=== PATIENT | female | born 1960 | race Caucasian/White ===

== ENCOUNTER 2017-10-28 10:51 | Emergency (ER) | payer SELFPAY ==
[2017-10-28 11:19] LABS: PLATELET COUNT, AUTOMATED 244 K/uL (150-450)
--- NOTE | 2017-10-28 11:44 | RADIOLOGY IMAGING REPORT ---
FACILITY: [facility] [place] PATIENT NAME: Dalton Dwoney : 10/29/1965 MR: [id number] V: [id number] EXAM DATE: ORDERING PHYSICIAN: PATRICIA JUNIOR TECHNOLOGIST: [place] [facility] [place]ney : 10/29/1965 Visit/Account:[id number] Date of Sevice: 10/28/2017 CHEST SINGLE AP Indication: Altered consciousness. Comparison: None available Findings: The heart is enlarged. There is suggestion of vascular congestion with mild nonspecific diffuse bronc hial wall thickening. There is no focal infiltrate or lobar consolidation. Low lung volumes with bibasilar atelectasis No pneumothorax or pleural effusion. IMPRESSION: 1. No acute cardiopulmonary process. 2. Cardiomegaly with findings of vascular congestion and nonspecific bronchial wall thickening. 3. Low lung volumes with bibasilar atelectasis. Report Dictated By: Kb Tyson MD at 10/28/2017 11:39 AM Report E-Signed By: Kb Tyson MD at 10/28/2017 11:40 AM WSN:[id number]
[2017-10-28] MEDS ORDERED: PIPERACILLIN/TAZO*3.375GM VIAL 3.375 GM in NS(*) 0.9% 100 ML ADDVANT BAG 100 ML IVPB ONE (11:55)
[2017-10-28] MEDS ORDERED: VANCOMYCIN 1 GM ADDVIAL 1 GM in NS(*) 0.9% 250 ML ADDVAN BAG 250 ML IVPB ONE (11:55)
[2017-10-28] MEDS ORDERED: NS(*) 0.9% 1000 ML BAG 1,000 ML IV ONE (12:00)
[2017-10-28 12:17] LABS: INR 1.07
[2017-10-28] MEDS ORDERED: LEVOPHED KIT (*) 1 IVSOL 1 KIT IV ONE (13:48)
--- NOTE | 2017-10-28 14:20 | RADIOLOGY IMAGING REPORT ---
FACILITY: [facility] PATIENT NAME: Dalton Downey : 10/29/1965 MR: [id number] V: [id number] EXAM DATE: ORDERING PHYSICIAN: EDDA EAGLE TECHNOLOGIST: Location: [facility] [place] Patient: Dalton Downey : 10/29/1965 Visit/Account:[id number] Date of Sevice: 10/28/2017 CHEST SINGLE AP Indication: Chest pain.. Comparison: Post intubation Findings: Endotracheal tube is still malpositioned, extending into the proximal aspect of the right mainstem br onchus. Recommend pulling back approximately 4 cm. Heart size within normal limits. No focal pulmonary consolidation. Ill-defined groundglass opacities on CT are not well seen with radi ograph. No pneumothorax or pleural effusion. IMPRESSION: 1. Endotracheal tube continues to be malpositioned, extending into the proximal aspect of the right m ainstem bronchus. Recommend pullback approximately 4 cm. Report Dictated By: Kb Tyson MD at 10/28/2017 2:13 PM Report E-Signed By: Kb Tyson MD at 10/28/2017 2:16 PM WSN:[id number]
--- NOTE | 2017-10-28 14:24 | RADIOLOGY IMAGING REPORT ---
FACILITY: [facility] [place] PATIENT NAME: Dalton Downey : 10/29/1965 MR: [id number] V: [id number] EXAM DATE: ORDERING PHYSICIAN: PATRICIA JUNIOR TECHNOLOGIST: Location: [facility] Patient: Dalton Downey : 10/29/1965 Visit/Account:[id number] Date of Sevice: 10/28/2017 CHEST/AB/PELV W/OUT CONTRAST HISTORY: sepsis/unresponsive/intubated/hypoxic TECHNIQUE: CT chest, abdomen and pelvis without intravenous contrast. One of the following dose optimization techniques was utilized in the performance of this exam: Autom ated exposure control; adjustment of the mA and/or kV according to the patient's size; or use of an i terative reconstruction technique. Specific details can be referenced in the facility's radiology C T exam operational policy. CONTRAST: None. Please note, lack of IV contrast limits evaluation of solid organs. COMPARISON: None. FINDINGS: CHEST: Heart/vessels: Mild prominence of the main pulmonary artery measuring up to 3.3 cm which is nonspeci fic however can be seen in the setting of pulmonary arterial hypertension. Otherwise negative. Mediastinum: Enteric tube extending through the esophagus, turning within the stomach. Otherwise neg ative. Lymph nodes: Nonspecific prominent right distal paratracheal lymph node measuring 12 mm in short axi s otherwise negative. Lungs/pleura: Limited evaluation secondary to motion artifact. There is multifocal groundglass opaci ties throughout the lungs. Mild left basilar atelectasis. Mild atelectasis anteriorly within the righ t middle lobe. Endotracheal tube is noted to extend into the right mainstem bronchus. Recommend retracting approxima tely 5-6 cm. Bones/soft tissues: Negative. ABDOMEN/PELVIS: Hepatobiliary: Hepatic steatosis. Liver is enlarged measuring 19 cm at the midclavicular line. Gallb ladder appears to be absent. Otherwise negative. Spleen: Negative. Adrenals: Negative. Pancreas: Negative. Kidneys/: Lopes catheter within a completely decompressed bladder lumen. The Lopes balloon appears to be somewhat low-lying however likely within the bladder lumen. Cannot completely exclude urethral location. GI: Mild sigmoid diverticulosis without evidence for diverticulitis. Otherwise negative. Appendix is unremarkable. Vessels/spaces/nodes: Negative. Bones/soft tissues: Chronic pelvic bone fractures. No acute osseous abnormality. Fusion hardware wit hin the bilateral sacroiliac joints. Mild degenerative changes within the lumbar spine. IMPRESSION: 1. Multifocal groundglass opacities throughout the lungs, likely infectious/inflammatory in etiology. 2. Malpositioning of the endotracheal tube extending down the right mainstem bronchus. 3. Question will low-lying Lopes catheter. The balloon may be within the proximal urethra. 4. Hepatomegaly with hepatic steatosis. 5. Additional incidental/chronic findings, as above. Results were discussed with PATRICIA JUNIOR at 10/28/2017 2:20 PM. Report Dictated By: Kb Tyson MD at 10/28/2017 2:05 PM Report E-Signed By: Kb Tyson MD at 10/28/2017 2:21 PM WSN:[id number]
--- NOTE | 2017-10-28 14:33 | RADIOLOGY IMAGING REPORT ---
FACILITY: [facility] PATIENT NAME: Dalton Downey : 10/29/1965 MR: [id number] V: [id number] EXAM DATE: ORDERING PHYSICIAN: EDDA EAGLE TECHNOLOGIST: Location: [facility] Patient: Dalton Downey : 10/29/1965 Visit/Account:[id number] Date of Sevice: 10/28/2017 CHEST SINGLE AP Indication: Post intubation. Comparison: None available Findings: Endotracheal tube extending into the right mainstem bronchus. Recommend pulling back approximately 3- 4 cm. Heart size within normal limits. Lungs are unchanged. No pneumothorax or pleural effusion. IMPRESSION: 1. Endotracheal tube extending into the right mainstem bronchus. 2. Otherwise stable chest Report Dictated By: Kb Tyson MD at 10/28/2017 2:28 PM Report E-Signed By: Kb Tyson MD at 10/28/2017 2:30 PM WSN:[id number]
--- NOTE | 2017-10-28 14:35 | RADIOLOGY IMAGING REPORT ---
[place] [facility] [place]: Dalton Downey : 10/29/1965 MR: [id number] V: [id number] EXAM DATE: ORDERING PHYSICIAN: EDDA EAGLE TECHNOLOGIST: Location: [facility] [place] Patient: Dalton Downey : 10/29/1965 Visit/Account:[id number] Date of Sevice: 10/28/2017 CHEST SINGLE AP Indication: Postintubation.. Comparison: None available Findings: Endotracheal tube has been pulled back and is now in satisfactory position, 4 cm from the annie. Heart size within normal limits. Lungs are unchanged. No pneumothorax or pleural effusion. IMPRESSION: 1. Endotracheal tube has been pulled back and is now in satisfactory position, approximately 4 cm fro m the annie. 2. Otherwise stable chest. Report Dictated By: Kb Tyson MD at 10/28/2017 2:30 PM Report E-Signed By: Kb Tyson MD at 10/28/2017 2:31 PM WSN:[id number]
--- NOTE | 2017-10-28 14:36 | RADIOLOGY IMAGING REPORT ---
FACILITY: [facility] PATIENT NAME: Dalton Downey : 10/29/1965 MR: [id number] V: [id number] EXAM DATE: ORDERING PHYSICIAN: PATRICIA JUNIOR TECHNOLOGIST: Location: [facility] Patient: Dalton Downey : 10/29/1965 Visit/Account:[id number] Date of Sevice: 10/28/2017 EXAMINATION: HEAD W/O CONTRAST CLINICAL INDICATION: sepsis/unresponsive/intubated/hypoxic COMPARISON: No priors TECHNIQUE: Contiguous axial CT images of the brain were obtained without IV contrast. Sagittal and co binh reformatted images were also performed. One of the following dose optimization techniques was utilized in the performance of this exam: Autom ated exposure control; adjustment of the mA and/or kV according to the patient's size; or use of an i terative reconstruction technique. Specific details can be referenced in the facility's radiology C T exam operational policy. RESULT: BRAIN: The ventricles are symmetric and normal in size. Nonspecific small focus of hypoattenuation o n long the periphery of the right frontal lobe (image 51 of series 2). Remaining brain parenchyma vandana ears normal. Remaining calero-white matter differentiation is preserved and the basilar cisterns are ma intained. The cerebellum and brainstem appear normal. There is no mass, acute infarct, hemorrhage or shift of midline. VISUALIZED PARANASAL SINUSES & MASTOIDS: Small layering fluid levels within the maxillary sinuses the re is also congestion within the nasal nasal passages with thickening of the ethmoid air cells. Mild chronic appearing peripheral opacification of the sphenoid sinuses. SKULL BASE & CRANIUM: Visualized osseous structures are intact. Partial visualization of endotracheal tube. IMPRESSION: 1. No definitive acute abnormality. 2. Nonspecific small focus of hypoattenuation along the periphery of the right frontal lobe. This may represent artifact or focal inflammation. MRI should be considered for further evaluation. 3. Paranasal sinus disease which could be partially related to intubation. Results were discussed with Dr. Olsen at 10/28/2017 2:30 PM. Report Dictated By: Kb Tyson MD at 10/28/2017 2:21 PM Report E-Signed By: Kb Tyson MD at 10/28/2017 2:32 PM WSN:[id number]
--- NOTE | 2017-10-28 14:38 | EKG ---
FACILITY: [facility] - [place] PATIENT NAME: MOLINA SEAMANVIII : [id number] MR: [id number] V: [id number] EXAM DATE: ORDERING PHYSICIAN: PATRICIA JUNIOR TECHNOLOGIST: Test Reason : Blood Pressure : / mmHG Vent. Rate : 107 BPM Atrial Rate : 107 BPM P-R Int : 146 ms QRS Dur : 088 ms QT Int : 390 ms P-R-T Axes : 071 118 063 degrees QTc Int : 520 ms Sinus tachycardia Left posterior fascicular block Septal infarct , age undetermined Abnormal ECG No previous ECGs available Confirmed by NANCY ISLAS ([id number]) on 10/29/2017 5:55:44 AM Referred By: VERNON Confirmed By:NANCY ISLAS
--- NOTE | 2017-10-28 14:38 | EKG ---
FACILITY: [facility] - [place] PATIENT NAME: MOLINA ALEXANDERXVIII : [id number] MR: [id number] V: [id number] EXAM DATE: ORDERING PHYSICIAN: PATRICIA JUNIOR TECHNOLOGIST: TISH Huizar Reason : Blood Pressure : / mmHG Vent. Rate : 113 BPM Atrial Rate : 113 BPM P-R Int : 146 ms QRS Dur : 094 ms QT Int : 358 ms P-R-T Axes : 063 107 091 degrees QTc Int : 491 ms Sinus tachycardia Right ventricular hypertrophy with repolarization abnormality Marked ST abnormality, possible anterior subendocardial injury Abnormal ECG Confirmed by NANCY ISLAS ([id number]) on 10/29/2017 5:57:38 AM Referred By: VERNON Confirmed By:NANCY ISLAS
--- NOTE | 2017-10-28 14:39 | EKG ---
FACILITY: [facility] [place] PATIENT NAME: MOLINA ALEXANDERXVIII : [id number] MR: [id number] V: [id number] EXAM DATE: ORDERING PHYSICIAN: PATRICIA JUNIOR TECHNOLOGIST: TISH Huizar Reason : Blood Pressure : / mmHG Vent. Rate : 113 BPM Atrial Rate : 113 BPM P-R Int : 142 ms QRS Dur : 138 ms QT Int : 430 ms P-R-T Axes : 061 145 077 degrees QTc Int : 589 ms Age and gender specific ECG analysis Sinus tachycardia Right bundle branch block Left posterior fascicular block Bifascicular block Septal infarct , age undetermined Inferior injury pattern ACUTE CA Abnormal ECG No previous ECGs available Confirmed by NANCY ISLAS ([id number]) on 10/29/2017 5:58:55 AM Referred By: VERNON Confirmed By:NANCY ISLAS
[2017-10-28 15:00] VITALS: BP 118/80
[2017-10-28] MEDS ORDERED: GABA-549 PO (15:55)
[2017-10-28] MEDS ORDERED: LISI5TAB25 PO (15:55)
[2017-10-28] MEDS ORDERED: ASPI-692 PO (15:55)
[2017-10-28] MEDS ORDERED: LOVA20TA99 PO (15:55)
[2017-10-28] MEDS ORDERED: CYCL10TA29 PO (15:55)
[2017-10-28] MEDS ORDERED: DOXY50SY2 PO (15:55)
[2017-10-28] MEDS ORDERED: CETI10CA8 PO (15:55)
[2017-10-28] MEDS ORDERED: RANI-366 PO (15:55)
[2017-10-28] MEDS ORDERED: METF-411 PO (15:55)
[2017-10-28] MEDS ORDERED: ASPI-1471 PO (15:55)
[2017-10-28] MEDS ORDERED: PROPOFOL(*)1000 MG/100 ML VIAL 100 ML IV PRN (16:30)
--- NOTE | 2017-10-28 18:08 | ER Report ---
History and Physical Time Seen By MD: 10:55 Hx. of Stated Complaint: pt unresponsive, breathing in 70s ra HPI/ROS This is a 52-year-old female currently traveling with her son from [place] to [place]. She has a past medical history significant for multiple MIs, diabetes, COPD, and obesity. Herself said that she has not been feeling well for approximately a week and he states that she often clutches her chest and complains of chest pain and shortness of breath. 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 At approximately 0 5:30 this morning the son states that he was unable to arouse her. He tried for the next hour to wake her up, but was unsuccessful so called 911. She was brought in by ambulance hypoxic, unresponsive, moving all extremities, and not following commands. Paramedics said her oxygen sat upon their arrival was 70%. Herself states that she continues to smoke cigarettes daily. Also states that she has been intubated previously and even coded at one point. Remainder of the 14 system rev: No Allergies: Uncoded Allergies: ALLERGY MED (Allergy, Severe, 10/28/17) Home Meds Reported Medications Doxycycline Calcium (VIBRAMYCIN) 50 Mg/5 Ml Syrup, 100 MG PO BID 10/28/17 Ranitidine Hcl (ZANTAC) 150 Mg Tablet, 150 MG PO BID, TAB 10/28/17 Lisinopril (LISINOPRIL) 5 Mg Tablet, 5 MG PO QDAY, TAB 10/28/17 Lovastatin (LOVASTATIN) 20 Mg Tablet, 20 MG PO QDAY 10/28/17 Cetirizine Hcl (ZYRTEC) 10 Mg Capsule, 10 MG PO QDAY, CAPSULE 10/28/17 Metformin Hcl (METFORMIN HCL) 500 Mg Tablet, 1 TAB PO BID, TAB 10/28/17 Aspirin (ASPIR 81) 81 Mg Tablet.dr, 81 MG PO QDAY, TAB 10/28/17 Cyclobenzaprine Hcl (CYCLOBENZAPRINE HCL) 10 Mg Tablet, 10 MG PO TID, #9 TAB 10/28/17 Aspirin/Acetaminophen/Caffeine (EXCEDRIN MIGRAINE CAPLET) 1 Each Tablet, 1 EACH PO 10/28/17 Gabapentin (GABAPENTIN) 300 Mg Capsule, 600 MG PO TID, CAPSULE 7/7/18 Unable To Obtain Past Medical: Unable to Obtain/Update Reviewed Nurses Notes: Yes Hx Smoking: Yes Smoking Status: Current: Every Day Smoker Exposure to Second Hand Smoke?: Yes Hx Substance Use Disorder: No Hx Alcohol Use: No Family History of: HTN, Diabetes, Cardiac Constitutional Vital Sign - Last 24 Hours 10/28/17 10/28/17 10/28/17 10/28/17 10:51 10:52 10:56 11:01 Temp 97.9 Pulse 105 114 113 114 Resp 46 14 36 71 B/P (MAP) 72/29 (43) 75/52 Pulse Ox 96 90 95 94 O2 Delivery Non-Rebreather 10/28/17 10/28/17 10/28/17 10/28/17 11:02 11:06 11:10 11:11 Pulse 114 114 Resp 19 19 B/P (MAP) 79/57 (64) 88/45 (59) Pulse Ox 94 93 10/28/17 10/28/17 10/28/17 10/28/17 11:16 11:21 11:22 11:26 Pulse 118 115 113 Resp 25 19 16 B/P (MAP) 123/67 (85) Pulse Ox 91 91 91 10/28/17 10/28/17 10/28/17 10/28/17 11:30 11:31 11:36 11:40 Pulse 115 106 Resp 19 9 B/P (MAP) 123/115 (118) 148/97 (114) Pulse Ox 81 80 10/28/17 10/28/17 10/28/17 10/28/17 11:41 11:46 11:50 11:51 Pulse 113 116 113 Resp 8 52 29 B/P (MAP) 113/72 (86) Pulse Ox 84 91 96 10/28/17 10/28/17 10/28/17 10/28/17 11:56 12:00 12:01 12:06 Pulse 117 121 124 Resp 27 22 17 B/P (MAP) 188/117 (140) Pulse Ox 94 87 95 10/28/17 10/28/17 10/28/17 10/28/17 12:10 12:11 12:16 12:20 Pulse 118 116 Resp 25 31 B/P (MAP) 165/113 (130) 147/137 (140) Pulse Ox 97 98 10/28/17 10/28/17 10/28/17 10/28/17 12:21 12:21 12:21 12:21 Pulse 114 115 Resp 21 16 Pulse Ox 98 98 O2 Delivery Mechanical Ventilator FiO2 90.0 90.0 10/28/17 10/28/17 10/28/17 10/28/17 12:26 12:27 12:30 12:31 Pulse 111 111 Resp 16 7 B/P (MAP) 113/95 (101) 108/69 (82) Pulse Ox 97 98 10/28/17 10/28/17 10/28/17 10/28/17 12:36 12:40 12:41 12:46 Pulse 113 113 111 Resp 19 22 12 B/P (MAP) ???/??? (1665) 129/76 (93) Pulse Ox 100 98 99 10/28/17 10/28/17 10/28/17 10/28/17 12:50 12:55 13:00 13:05 Pulse 107 112 110 Resp 23 20 20 B/P (MAP) 129/93 (105) 107/75 (86) Pulse Ox 99 97 94 10/28/17 10/28/17 10/28/17 10/28/17 13:10 13:15 13:16 13:20 Pulse 108 108 110 Resp 20 19 23 B/P (MAP) 141/126 (131) 136/94 (108) 101/37 (58) Pulse Ox 90 87 89 10/28/17 10/28/17/11/0810/28/17 13:25 13:30 13:32 13:35 Pulse 106 107 104 Resp 13 22 B/P (MAP) 84/61 (69) 55/46 (49) Pulse Ox 94 87 10/28/17 10/28/17/11/0810/28/17 13:37 13:40 13:41 13:44 Pulse 108 Resp 16 B/P (MAP) 89/29 (49) 58/28 (38) 65/40 (48) Pulse Ox 86 10/28/17 10/28/17/11/0810/28/17 13:45 13:50 13:55 13:59 Pulse 107 109 107 Resp 29 15 B/P (MAP) 70/56 (61) 79/41 (54) 105/82 (90) Pulse Ox 85 79 7/7/18 7/7/18 7/7/18 7/7/18 14:00 14:05 14:10 14:15 Pulse 111 107 108 110 Resp 7 69 70 14 B/P (MAP) 99/80 (86) 92/30 (50) Pulse Ox 91 89 88 95 10/28/17 10/28/17 10/28/17 10/28/17 14:18 14:20 14:21 14:25 Pulse 108 113 Resp 10 18 B/P (MAP) 91/45 (60) 100/53 (69) 117/71 (86) Pulse Ox 98 98 FiO2 100.0 10/28/17 10/28/17 10/28/17 10/28/17 14:30 14:35 14:40 14:45 Pulse 114 111 115 114 Resp 36 24 15 19 B/P (MAP) 110/73 (85) 116/84 (95) 84/75 (78) 107/74 (85) Pulse Ox 98 99 100 93 10/28/17 10/28/17 10/28/17 14:50 14:55 15:00 Pulse 114 116 114 Resp 21 21 20 B/P (MAP) 100/78 (85) 111/79 (90) 118/80 (93) Pulse Ox 90 88 93 Physical Exam General Appearance: The patient is unresponsive with a GCS of 7 Eyes: Pupils equal and round no pallor or injection. ENT, Mouth: Mucous membranes are moist. Respiratory: Coarse breath sounds throughout both lung [place]. Cardiovascular: Tachycardic no murmurs rubs or gallops Gastrointestinal: Abdomen is soft and obese, no masses, bowel sounds normal. Neurological: She is moving all extremities equally, GCS 7 Skin: Warm and dry, no rashes. Extremities are nontender, nonswollen and have full range of motion. DIFFERENTIAL DIAGNOSIS: After history and physical exam differential diagnosis was considered for altered mental status including but not limited to hypoglycemia, infectious process, electrolyte abnormality, head injury and intoxicants. Medical Decision Making Data Points Result Diagram: 10/28/17 1103 10/28/17 1103 Laboratory Hematology Test 10/28/17 10:57 10/28/17 11:03 10/28/17 11:12 10/28/17 14:55 Whole Blood Glucose 424 mg/DL (75-110) Red Blood Count 4.87 M/uL (4.17-5.56) Mean Corpuscular Volume 94.6 fL (80.0-96.0) Mean Corpuscular Hemoglobin 30.9 pg (26.0-33.0) Mean Corpuscular Hemoglobin Concent 32.7 g/dL (32.0-36.0) Red Cell Distribution Width 14.2 % (11.5-14.5) Mean Platelet Volume 9.7 fL (7.2-11.1) Neutrophils (%) (Auto) 87.5 % (39.4-72.5) Lymphocytes (%) (Auto) 7.0 % (17.6-49.6) Monocytes (%) (Auto) 5.1 % (4.1-12.4) Eosinophils (%) (Auto) 0.0 % (0.4-6.7) Basophils (%) (Auto) 0.4 % (0.3-1.4) Nucleated RBC Relative Count (auto) 0.0 /100WBC Neutrophils # (Auto) 16.9 K/uL (2.0-7.4) Lymphocytes # (Auto) 1.4 K/uL (1.3-3.6) Monocytes # (Auto) 1.0 K/uL (0.3-1.0) Eosinophils # (Auto) 0.0 K/uL (0.0-0.5) Basophils # (Auto) 0.1 K/uL (0.0-0.1) Nucleated RBC Absolute Count (auto) 0.01 K/uL D-Dimer Quantitative (PE/DVT) 0.64 ug/ml (0-0.50) Sodium Level 139 mmol/L (137-145) Potassium Level 4.1 mmol/L (3.5-5.0) Chloride Level 91 mmol/L (98-107) Carbon Dioxide Level 35 mmol/L (22-31) Blood Urea Nitrogen 27 mg/dl (7-18) Creatinine 2.70 mg/dl (0.52-1.04) Glomerular Filtration Rate Calc 18.7 Random Glucose 399 mg/dl (75-110) Lactate 5.1 mmol/L (0.7-2.1) Calcium Level 8.1 mg/dl (8.4-10.2) Total Bilirubin 0.5 mg/dl (0.2-1.3) Aspartate Amino Transf (AST/SGOT) 74 U/L (0-35) Alanine Aminotransferase (ALT/SGPT) 42 U/L (0-56) Alkaline Phosphatase 87 U/L (0-126) Troponin I 0.346 ng/ml Total Protein 6.6 g/dl (6.3-8.2) Albumin 3.7 g/dl (3.5-5.0) Prothrombin Time 14.0 seconds (12.0-14.4) Prothromb Time International Ratio 1.07 Activated Partial Thromboplast Time 26 seconds (23-35) Salicylates Level < 10 mg/L Salicylate Last Dose Date u Acetaminophen Level < 10 ug/ml Serum Alcohol < 10 mg/dl Blood Gas Puncture Site Right radial Blood Gas Patient Temperature 38.2 DEGREES Arterial Blood pH 7.27 (7.35-7.45) Arterial Blood Partial Pressure CO2 74 mmHg (32-37) Arterial Blood Partial Pressure O2 77 mmHg (60-80) Arterial Blood HCO3 34 mmol/L (20-26) Arterial Blood Oxygen Saturation 91 % (92-100) Arterial Blood Base Excess 7.0 mmol/L Jonny Test Nt avail Oxygen Liters/Minute 70% vent Urine Opiates Screen Negative Urine Barbiturates Screen Negative Ur Tricyclic Antidepressants Screen Negative Urine Phencyclidine Screen Negative Urine Amphetamines Screen Negative Urine Benzodiazepines Screen Negative Urine Cocaine Screen Negative Urine Cannabinoids Screen Negative Chemistry Test 10/28/17 10:57 10/28/17 11:03 10/28/17 11:12 10/28/17 14:55 Whole Blood Glucose 424 mg/DL (75-110) White Blood Count 19.3 k/uL (4.5-11.0) Red Blood Count 4.87 M/uL (4.17-5.56) Hemoglobin 15.1 g/dL (12.0-16.0) Hematocrit 46.1 % (34.0-47.0) Mean Corpuscular Volume 94.6 fL (80.0-96.0) Mean Corpuscular Hemoglobin 30.9 pg (26.0-33.0) Mean Corpuscular Hemoglobin Concent 32.7 g/dL (32.0-36.0) Red Cell Distribution Width 14.2 % (11.5-14.5) Platelet Count 244 K/uL (150-450) Mean Platelet Volume 9.7 fL (7.2-11.1) Neutrophils (%) (Auto) 87.5 % (39.4-72.5) Lymphocytes (%) (Auto) 7.0 % (17.6-49.6) Monocytes (%) (Auto) 5.1 % (4.1-12.4) Eosinophils (%) (Auto) 0.0 % (0.4-6.7) Basophils (%) (Auto) 0.4 % (0.3-1.4) Nucleated RBC Relative Count (auto) 0.0 /100WBC Neutrophils # (Auto) 16.9 K/uL (2.0-7.4) Lymphocytes # (Auto) 1.4 K/uL (1.3-3.6) Monocytes # (Auto) 1.0 K/uL (0.3-1.0) Eosinophils # (Auto) 0.0 K/uL (0.0-0.5) Basophils # (Auto) 0.1 K/uL (0.0-0.1) Nucleated RBC Absolute Count (auto) 0.01 K/uL D-Dimer Quantitative (PE/DVT) 0.64 ug/ml (0-0.50) Glomerular Filtration Rate Calc 18.7 Lactate 5.1 mmol/L (0.7-2.1) Calcium Level 8.1 mg/dl (8.4-10.2) Total Bilirubin 0.5 mg/dl (0.2-1.3) Aspartate Amino Transf (AST/SGOT) 74 U/L (0-35) Alanine Aminotransferase (ALT/SGPT) 42 U/L (0-56) Alkaline Phosphatase 87 U/L (0-126) Troponin I 0.346 ng/ml Total Protein 6.6 g/dl (6.3-8.2) Albumin 3.7 g/dl (3.5-5.0) Prothrombin Time 14.0 seconds (12.0-14.4) Prothromb Time International Ratio 1.07 Activated Partial Thromboplast Time 26 seconds (23-35) Salicylates Level < 10 mg/L Salicylate Last Dose Date u Acetaminophen Level < 10 ug/ml Serum Alcohol < 10 mg/dl Blood Gas Puncture Site Right radial Blood Gas Patient Temperature 38.2 DEGREES Arterial Blood pH 7.27 (7.35-7.45) Arterial Blood Partial Pressure CO2 74 mmHg (32-37) Arterial Blood Partial Pressure O2 77 mmHg (60-80) Arterial Blood HCO3 34 mmol/L (20-26) Arterial Blood Oxygen Saturation 91 % (92-100) Arterial Blood Base Excess 7.0 mmol/L Jonny Test Nt avail Oxygen Liters/Minute 70% vent Urine Opiates Screen Negative Urine Barbiturates Screen Negative Ur Tricyclic Antidepressants Screen Negative Urine Phencyclidine Screen Negative Urine Amphetamines Screen Negative Urine Benzodiazepines Screen Negative Urine Cocaine Screen Negative Urine Cannabinoids Screen Negative Coagulation Test 10/28/17 11:03 10/28/17 11:12 D-Dimer Quantitative (PE/DVT) 0.64 ug/ml Prothrombin Time 14.0 seconds Prothromb Time International Ratio 1.07 Activated Partial Thromboplast Time 26 seconds Toxicology Test 10/28/17 11:12 10/28/17 14:55 Salicylates Level < 10 mg/L Salicylate Last Dose Date u Acetaminophen Level < 10 ug/ml Serum Alcohol < 10 mg/dl Urine Opiates Screen Negative Urine Barbiturates Screen Negative Ur Tricyclic Antidepressants Screen Negative Urine Phencyclidine Screen Negative Urine Amphetamines Screen Negative Urine Benzodiazepines Screen Negative Urine Cocaine Screen Negative Urine Cannabinoids Screen Negative EKG/Imaging EKG Interpretation 12 lead EKG: Rhythm: Sinus tachycardia [place]: normal QRS: Left bundle-branch block ST segments: Nonspecific T wave flattening Monitor Interpretation: Sinus Tachycardia Imaging X-ray: cxr was obtained. I viewed the images myself on the PACS system. My interpretation of the images is: Enlarged cardiac silhouette with hypoinflated lungs. The radiologist interpretation had no clinically significant variation from this interpretation. Results: CT scan of the head/chest/abdomen/pelvis was obtained. The results of the study are multiple groundglass opacities consistent with multilobar pneumonia, enlarged heart, ET tube in right mainstem bronchus. The study was read by the radiologist. I viewed the images myself on the PACS system. ED Course/Re-evaluation ED Course 10/28/2017 6:02:07 pm This is a 17-year-old female who was brought in by ambulance early this morning and respiratory distress and unresponsive with a GCS of approximately 7. She was initially found to be hypercarbic with a CO2 in the high 70s. Presumably she isn't hypercarbic respiratory failure so she was intubated both for ventilation and because she was not protecting her airway. Her workup also noted to be septic so she was started on aggressive fluid resuscitation as well as antibiotics. A CT scan of the head chest abdomen and pelvis was performed to evaluate for a source of sepsis, and she was found to have multiple lobar pneumonia. She had been given think and Zosyn for broad-spectrum antibiotics for sepsis. She also had an elevated troponin which is likely from demand ischemia given her extensive cardiac history. During the resuscitation. She became increasingly hypotensive and was started on levo fed. A central line was placed by me. After hours of resuscitation she did stabilize, and after 4 L of fluids put out 250 mL of urine. The extensive nature of her illness and likely need for a electronic device monitor, she was transferred to the intensive care unit at the [facility]. Procedure Procedure: Rapid sequence intubation. Indication for the procedure was airway protection, hypercarbic respiratory failure. The patient was preoxygenated with 100% oxygen by face mask. The patient was given the following IV medications: Etomidate/succinylcholine, . The patient was orally endotracheally intubated under direct visualization with a 7.5 ETT. In line stabilization was performed during the procedure. Tracheal intubation was confirmed with misting on the tube; breath sounds were auscultated equally bilaterally; appropriate color change with [place] CO2 detector. Chest X-ray shows ETT in good position. The procedure was performed by myself. Procedure: Central line placement. After verbal informed consent from the patient's son; with the risks explained to be bleeding, infection, and collapsed lung; maximal sterile barrier technique was uses including cap, gown, sterile gloves, large sheet, hand washing and chlorhexidine prep. The area anesthetized with 1% lidocaine. The right femoral vein was punctured with a 19 gauge finder needle, then a wire introducer was placed, a 7 [place] triple lumen was placed using Seldinger technique. There were no complications. Blood return low pressure, dark blood. Patient tolerated procedure well. The procedure was performed by myself. Decision to Disposition Date: Oct 28, 2017 Decision to Disposition Time: 16:00 Critical Care Time I spent a total of 180 minutes of critical care time in obtaining history, performing a physical exam, bedside monitoring of interventions, collecting and interpreting tests and discussion with consultants but not including time spent performing procedures. Depart Departure Latest Vital Signs Vital Signs Date Time Temp Pulse Resp B/P (MAP) Pulse Ox O2 Delivery O2 Flow Rate FiO2 10/28/17 15:00 114 20 118/80 (93) 93 10/28/17 14:21 100.0 10/28/17 12:21 Mechanical Ventilator 10/28/17 10:52 97.9 Core Temperature (Celsius): ??? Impression: Primary Impression: Sepsis Additional Impressions: Hypercapnic respiratory failure Pneumonia Renal failure Condition: Critical Disposition: XFER TO [facility] Problem Qualifiers Primary Impression: Sepsis Sepsis type: sepsis due to unspecified organism Qualified Codes: A41.9 - Sepsis, unspecified organism Additional Impressions: Hypercapnic respiratory failure Chronicity: acute Qualified Codes: J96.02 - Acute respiratory failure with hypercapnia Pneumonia Pneumonia type: due to unspecified organism Laterality: unspecified laterality Lung location: unspecified part of lung Qualified Codes: J18.9 - Pneumonia, unspecified organism Renal failure Renal failure chronicity: acute Acute renal failure type: unspecified Qualified Codes: N17.9 - Acute kidney failure, unspecified PATRICIA JUNIOR MD Oct 28, 2017 18:08
== END 2017-10-28 17:10 | disposition short-term general hospital (02) ==
LOC: ER 10:53
DX: A41.9 Sepsis, unspecified organism (principal); J96.02 Acute respiratory failure with hypercapnia; J18.9 Pneumonia, unspecified organism; N17.9 Acute kidney failure, unspecified; F17.210 Nicotine dependence, cigarettes, uncomplicated
CPT/HCPCS: 31500; 36416; 36556; 36600; 70450; 71045; 71250; 74176; 80305; 80320; 80329; 82803; 82948; 83605; 84484; 85025; 85379; 85610; 85730; 87040; 87088; 93005; 94002; 99291; 99292; C1758; J0330; J2310; J2704; J3490; J7030; 82040; 82247; 82310; 82374; 82435; 82565; 82947; 84075; 84132; 84155; 84295; 84450; 84460; 84520

== ENCOUNTER → 2017-10-28 | Outpatient (REF) ==
[~2017-10-28] MED LIST: ASPI-1471 PO; ASPI-692 PO; CETI10CA8 PO; CYCL10TA29 PO; DOXY50SY2 PO; GABA-549 PO; LISI5TAB25 PO; LOVA20TA99 PO; METF-411 PO; RANI-366 PO
== END ==
LOC: AMB 15:40
PROVIDERS: ATTEND Nurse Practitioner
DX: J96.90 Respiratory failure, unspecified, unspecified whether with hypoxia or hypercapnia (principal); A41.9 Sepsis, unspecified organism

== ENCOUNTER → 2017-10-28 | Outpatient (CLI) | payer MEDICAID | LOC: AMB 10:02 | PROVIDERS: ATTEND Nurse Practitioner | DX: R41.82 Altered mental status, unspecified (principal); R40.20 Unspecified coma; R09.02 Hypoxemia | CPT/HCPCS: A0425; A0427 ==